=== PATIENT | male | born 1990 | race Caucasian/White ===

== ENCOUNTER 2018-03-31 14:03 | Emergency (ER) | payer SELFPAY ==
--- NOTE | 2018-03-31 15:53 | ED ---
HPI Febrile Illness - HPI Summary HPI Summary: Patient is a 27 M y/o w/ c/o pressure in left chest, coughing, congestion, and cold onsetting a week ago. Cough is noted to be somewhat productive. He reports that when he has a coughing fit, he experiences cold sweats. He denies sore throat but reports some rhinorrhea. Patient is a smoker but has stopped in the past few days due to Sx. He denies any other medical issues. 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 Patient does not report anything that alleviates Sx. On triage, pain is rated 6/10. Home medications and allergies reviewed. - History of Current Complaint Chief Complaint: EDUpperRespComplaint Time Seen by Provider: 03/31/18 15:33 Hx Obtained From: Patient Onset/Duration: Started Weeks Ago - one week ago, Still Present Timing: Constant Current Severity: Moderate - 6/10 Pain Intensity: 6 Pain Scale Used: 0-10 Numeric - 6/10 on triage Aggravating Factors: Other: - physical work at patient's job Alleviating Factors: Nothing Associated Signs and Symptoms: Other: - POSITIVE: rhinorrhea, left chest pressure, productive coughing, congestion, cold, cold sweats during coughing fits, NEGATIVE: sore throat - Allergy/Home Medications Allergies/Adverse Reactions: Allergies Allergy/AdvReac Type Severity Reaction Status Date / Time No Known Allergies Allergy Verified 03/31/18 14:14 PMH/Surg Hx/FS Hx/Imm Hx Sensory History: Denies: Hx Legally Blind, Hx Deafness Opthamlomology History: Denies: Hx Legally Blind EENT History: Denies: Hx Deafness Infectious Disease History: No Infectious Disease History: Denies: Traveled Outside the [place] in Last 30 Days - Family History Known Family History: Negative: Blood Disorder - Social History Alcohol Use: None Substance Use Type: Reports: None Hx Tobacco Use: Yes Smoking Status (MU): Current Every Day Smoker Review of Systems Positive: Other - POSITIVE: cold, cold sweats when experiencing coughing fits . Negative: Fever - on vitals, temp is 98.2 F Positive: Nasal Discharge. Negative: Sore Throat Positive: Other - left chest pressure Positive: Cough - productive , Other - congestion All Other Systems Reviewed And Are Negative: Yes Physical Exam - Summary Physical Exam Summary: Appearance: Well appearing, no pain distress Skin: warm, dry, reflects adequate perfusion Head/face: normal Eyes: EOMI, LANE ENT: normal Neck: supple, non-tender Respiratory: breath sounds present; wheezes in the left lung, no rales nor crackles Cardiovascular: RRR, pulses symmetrical Abdomen: non-tender, soft Bowel Sounds: present Musculoskeletal: normal, strength/ROM intact Neuro: normal, sensory motor intact, A&Ox3 Triage Information Reviewed: Yes Vital Signs On Initial Exam: Initial Vitals Temp Pulse Resp BP Pulse Ox 98.2 F 71 14 117/71 98 03/31/18 14:13 03/31/18 14:13 03/31/18 14:13 03/31/18 14:13 03/31/18 14:13 Vital Signs Reviewed: Yes Diagnostics - Vital Signs Vital Signs Temp Pulse Resp BP Pulse Ox 03/31/18 14:13 98.2 F 71 14 117/71 98 - Laboratory Lab Statement: Any lab studies that have been ordered have been reviewed, and results considered in the medical decision making process. Course/Dx - Course Course Of Treatment: Smoker presents with cough and cold symptoms and mild wheezing and was left chest. No rales or rhonchi and no fever. Treated symptomatically for bronchitis with steroids, albuterol, decongestant. Follow- up with primary care physician. - Febrile Illness Differential Diagnoses: Other: - URI versus bronchitis versus pneumonia - Diagnoses Provider Diagnoses: Acute bronchitis Discharge - Sign-Out/Discharge Documenting (check all that apply): Patient Departure - discharge - Discharge Plan Condition: Stable Disposition: HOME Prescriptions: Albuterol HFA INHALER* [Ventolin HFA Inhaler*] 2 puff INH Q4H PRN #1 mdi PRN Reason: Sob/Wheezing Guaifenesin/Pseudoephedrne HCl [Mucinex D ER 600-60 mg Tablet] 1 each PO BID PRN #10 tab.er.12h PRN Reason: Congestion predniSONE TAB* [Deltasone TAB*] 50 mg PO DAILY #5 tab Patient Education Materials: Acute Bronchitis (ED) Forms: *Work Release Referrals: Gloria Bahena [Primary Care Provider] - Additional Instructions: Cut back on smoking. Stay well-hydrated. Return with fever, pain in the chest , shortness of breath, worse or other concerns. Follow up with your family doctor on Monday. - Billing Disposition and Condition Condition: STABLE Disposition: Home - Attestation Statements Document Initiated by Meghanibe: Yes Documenting Scribe: Esau Kelley Provider For Whom Rustam is Documenting (Include Credential): Omer Moreira MD Scribe Attestation: IEsau, scribed for Omer Moreira MD on 03/31/18 at 1712. Scribe Documentation Reviewed: Yes Provider Attestation: The documentation as recorded by the Esau gregg accurately reflects the service I personally performed and the decisions made by me, Omer Moreira MD
[2018-03-31 16:27] VITALS: BP 120/76
== END 2018-03-31 16:26 | disposition home or self-care (01) ==
LOC: ED 14:03

== ENCOUNTER 2019-01-30 06:43 | Emergency (ER) | payer MEDICAID ==
[2019-01-30] MEDS ORDERED: NS 0.9% 1000 ML** 2,000 ML IV ONE (07:14)
--- NOTE | 2019-01-30 07:17 | ED ---
Substance Abuse/Use - HPI Summary HPI Summary: This patient is a 28 year old M presenting to [facility] with a chief complaint of overdose after using drugs for approx. 6 hours. Pt used meth felt unwell and then decided to use heroin. Pt reports after using heroin he started to get dizzy, his diaphragm cramped up, irregular heartbeat, and diaphoresis. It was pt s first time using heroin. Pt seems to have been using meth for a while, especially when stressed. Pt reports his girlfriend recently broke up with him. - History Of Current Complaint Chief Complaint: EDSubstanceAbuse Stated Complaint: SUBSTANCE ABUSE PER EMS Time Seen by Provider: 01/30/19 07:05 Hx Obtained From: Patient Onset/Duration of Drug/ETOH Abuse: Hours Ingestion History: Type/Name Of Drug - heroin, meth Timing Of Abuse: Binge Use Aggravating Factor(s): Recent Stress Alleviating Factor(s): Nothing Associated Signs And Symptoms: Palpitations, Shortness Of Breath, Diaphoretic, Other: - dizzy Related Hx: Recent Stressors - Allergies/Home Medications Allergies/Adverse Reactions: Allergies Allergy/AdvReac Type Severity Reaction Status Date / Time No Known Allergies Allergy Verified 01/30/19 06:54 Home Medications: Home Medications NK [No Home Medications Reported] 01/30/19 [History Confirmed 01/30/19] PMH/Surg Hx/FS Hx/Imm Hx Sensory History: Denies: Hx Legally Blind, Hx Deafness Opthamlomology History: Denies: Hx Legally Blind Infectious Disease History: No Infectious Disease History: Denies: Traveled Outside the [place] in Last 30 Days - Family History Known Family History: Negative: Blood Disorder - Social History Occupation: Employed Full-time Alcohol Use: None Substance Use Type: Reports: None Hx Tobacco Use: Yes Smoking Status (MU): Current Every Day Smoker Review of Systems Positive: Skin Diaphoresis Positive: Palpitations Positive: Shortness Of Breath Neurological: Other - dizzy All Other Systems Reviewed And Are Negative: Yes Physical Exam - Summary Physical Exam Summary: Appearance: Well-appearing, Well-nourished, lying in bed comfortably Skin: Warm, dry, no obvious rash Eyes: sclera anicteric, no conjunctival pallor ENT: mucous membranes moist, pharynx appears normal Neck: Supple, nontender Respiratory: Clear to auscultation, no signs of respiratory distress Cardiovascular: Normal S1, S2. No murmurs. Normal distal pulses in tibial and radial bilaterally. Bradycardic. Abdomen: Soft, nontender, normal active bowel sounds present Musculoskeletal: Normal, Strength/ROM Intact Neurological: A&Ox3, awake and alert, mentation is normal, speech is fluent and appropriate Psychiatric: affect is normal, does not appear anxious or depressed Triage Information Reviewed: Yes Vital Signs On Initial Exam: Initial Vitals Temp Pulse Resp BP Pulse Ox 96.3 F 48 16 133/80 98 01/30/19 06:49 01/30/19 06:49 01/30/19 06:49 01/30/19 06:49 01/30/19 06:49 Vital Signs Reviewed: Yes Diagnostics - Vital Signs Vital Signs Temp Pulse Resp BP Pulse Ox 01/30/19 06:49 96.3 F 48 16 133/80 98 - Laboratory Result Diagrams: 01/30/19 07:40 01/30/19 07:40 Lab Statement: Any lab studies that have been ordered have been reviewed, and results considered in the medical decision making process. - EKG 0657 Cardiac Rate: Bradycardia EKG Rhythm: Sinus Bradycardia Summary of EKG Findings: An EKG reveals sinus bradycardia at 44 BPM, P waves, QRS complex, and T waves are within normal limits, T waves and intervals are normal, no ischemic changes. Course/Dx - Course Course Of Treatment: This patient is a 28 year old M presenting to [facility] with a chief complaint of overdose after using drugs for approx. 6 hours. Pt used meth felt unwell and then decided to use heroin. Pt reports after using heroin he started to get dizzy, his diaphragm cramped up, irregular heartbeat, and diaphoresis. It was pts first time using heroin. Pt seems to have been using meth for a while. Physical Exam Findings are nml except his heart rate is bradycardic. Blood work obtained. Glucose is 142, Total Bilirubin is 1.6, and AST is 10. Serum Alcohol at 0740 is < 10. An EKG reveals sinus bradycardia at 44 BPM, P waves, QRS complex, and T waves are within normal limits, T waves and intervals are normal, no ischemic changes.. Patient will be discharged with follow up from PCP [facility]. The patient is agreeable with this plan. - Diagnoses Provider Diagnoses: Polysubstance abuse Discharge - Sign-Out/Discharge Documenting (check all that apply): Patient Departure - Discharge Patient Received Moderate/Deep Sedation with Procedure: No - Discharge Plan Condition: Good Disposition: HOME Patient Education Materials: Narcotic Safety (ED), Polysubstance Abuse (ED) Referrals: [facility] [Outside] Gloria Bahena [Primary Care Provider] - - Attestation Statements Document Initiated by Scribe: Yes Documenting Scribe: Marlena Moore Provider For Whom Scribe is Documenting (Include Credential): Dr. Tyshawn Singh MD Scribe Attestation: Marlena Smith scribed for Dr. Tyshawn Singh MD on 01/30/19 at 1014. Status of Scribe Document: Ready
[2019-01-30 07:53] LABS: ABS Basophils 0.1 10^3/ul (0-0.2); ABS Eosinophils 0.1 10^3/ul (0-0.6); ABS Lymphocytes 1.2 10^3/ul (1.0-4.8); ABS Monocytes 0.8 10^3/ul (0-0.8); ABS Neutrophils 8.2 10^3/ul (1.5-7.7); Eosinophil % 0.7 %; Hematocrit 41 % (42-52); Hemoglobin 14.2 g/dL (14.0-18.0); Lymphocyte % 11.5 %; Mean Corpuscular HGB Conc 35 g/dL (31-36); Mean Corpuscular Hemoglobin 32 pg (27-31); Mean Corpuscular Volume 93 fL (80-94); Mean Platelet Volume 9.6 fL (7.4-10.4); Nucleated Red Blood Cells % 0.1; Platelet Count 174 10^3/uL (150-450); Red Blood Count 4.39 10^6 /uL (4.18-5.48); Red Cell Distribution Width 13 % (10-15); White Blood Count 10.3 10^3/uL (3.5-10.8)
[2019-01-30 08:10] LABS: ALT 17 U/L (7-52); AST 10 U/L (13-39); Albumin 4.5 g/dL (3.2-5.2); Alkaline Phosphatase 40 U/L (34-104); Anion Gap 8 mmol/L (2-11); BUN/Creatinine Ratio 18.7 (8-20); Blood Urea Nitrogen 17 mg/dL (6-24); CO2 Carbon Dioxide 25 mmol/L (22-32); Calcium 9.2 mg/dL (8.6-10.3); Chloride 105 mmol/L (101-111); EGFR Non-African American 99.2 (>60); Globulin 2.3 g/dL (2-4); Glucose 143 mg/dL (70-100); Potassium 3.6 mmol/L (3.5-5.0); Sodium 138 mmol/L (135-145); Total Protein 6.8 g/dL (6.4-8.9)
[2019-01-30 08:40] LABS: Alcohol < 10 mg/dL (<10)
[2019-01-30 09:32] VITALS: BP 121/67
== END 2019-01-30 09:31 | disposition home or self-care (01) ==
LOC: ED 06:43
DX: F19.10 Other psychoactive substance abuse, uncomplicated (principal); F17.210 Nicotine dependence, cigarettes, uncomplicated
CPT/HCPCS: 36415; 80053; 80320; 83605; 85025; 93005; 96360; 96361; 99283; G0480

== ENCOUNTER 2019-02-25 16:16 | Emergency (ER) | payer MEDICAID, OTHER ==
[2019-02-25] MEDS ORDERED: Lidocaine 1% MPF ** 5 ML VIAL IM ONE (16:39)
[2019-02-25] MEDS ORDERED: cefTRIAXone VIAL(*) 250 MG VIAL IM ONE (16:39)
[2019-02-25] MEDS ORDERED: Azithromycin TAB* 250 MG PO ONE (16:40)
--- NOTE | 2019-02-25 16:41 | ED ---
GI/ HPI - HPI Summary HPI Summary: Patient complains of hard painful lump in right inguinal crease is 4 days. Pain worse with palpation and movement. Pain is constant. Denies fever, cough , sore throat, CP, SOB, N/V/V abdominal pain, change in urine, change in BM, penile or testicular symptoms. Medical history is none. - History of Current Complaint Chief Complaint: EDAbdPain Time Seen by Provider: 02/25/19 16:27 Stated Complaint: LUMP IN GROIN PER PT Hx Obtained From: Patient Onset/Duration: Started Days Ago Timing: Constant Severity: Moderate Current Severity: Moderate Pain Intensity: 5 Location of Pain: Other Pain Characteristics: Aching Associated Signs and Symptoms: Positive: Negative - Allergy/Home Medications Allergies/Adverse Reactions: Allergies Allergy/AdvReac Type Severity Reaction Status Date / Time No Known Allergies Allergy Verified 01/30/19 06:54 PMH/Surg Hx/FS Hx/Imm Hx Endocrine/Hematology History: Denies: Hx Anticoagulant Therapy Cardiovascular History: Denies: Hx Pacemaker/ICD History: Denies: Hx Dialysis Sensory History: Denies: Hx Legally Blind, Hx Deafness Opthamlomology History: Denies: Hx Legally Blind EENT History: Denies: Hx Deafness Neurological History: Denies: Hx CVA Infectious Disease History: No Infectious Disease History: Denies: Traveled Outside the [place] in Last 30 Days - Family History Known Family History: Negative: Blood Disorder - Social History Alcohol Use: None Substance Use Type: Reports: None Substance Use Comment - Amount & Last Used: meth Hx Tobacco Use: Yes Smoking Status (MU): Current Every Day Smoker Review of Systems Constitutional: Negative Eyes: Negative ENT: Negative Cardiovascular: Negative Respiratory: Negative Gastrointestinal: Negative Genitourinary: Negative Musculoskeletal: Negative Skin: Negative Neurological: Negative Psychological: Normal All Other Systems Reviewed And Are Negative: Yes Physical Exam - Summary Physical Exam Summary: Hard painful nodule at top of right inguinal crease consistent with lymphadenopathy. Exam of genitalia normal. Triage Information Reviewed: Yes Vital Signs On Initial Exam: Initial Vitals Temp Pulse Resp BP Pulse Ox 98.7 F 66 18 123/66 100 02/25/19 16:21 02/25/19 16:21 02/25/19 16:21 02/25/19 16:21 02/25/19 16:21 Vital Signs Reviewed: Yes Appearance: Positive: Well-Appearing Skin: Positive: Warm Head/Face: Positive: Normal Head/Face Inspection Eyes: Positive: Normal Neck: Positive: Supple Respiratory/Lung Sounds: Positive: Clear to Auscultation Cardiovascular: Positive: Normal Abdomen Description: Positive: Nontender Male Genital Exam: Positive: Normal Genitalia, Inguinal Tenderness Musculoskeletal: Positive: Normal Neurological: Positive: Normal Psychiatric: Positive: Normal AVPU Assessment: Alert - Rafi Coma Scale Best Eye Response: 4 - Spontaneous Best Motor Response: 6 - Obeys Commands Best Verbal Response: 5 - Oriented Coma Scale Total: 15 Diagnostics - Vital Signs Vital Signs Temp Pulse Resp BP Pulse Ox 02/25/19 16:21 98.7 F 66 18 123/66 100 - Laboratory Lab Statement: Any lab studies that have been ordered have been reviewed, and results considered in the medical decision making process. GIGU Course/Dx - Course Course Of Treatment: Patient complains of hard painful lump in right inguinal crease is 4 days. Pain worse with palpation and movement. Pain is constant. Denies fever, cough, sore throat, CP, SOB, N/V/V abdominal pain, change in urine , change in BM, penile or testicular symptoms. Medical history is none. Vital signs within normal limits. Cultures for gonorrhea and chlamydia pending. Patient given Rocephin 250 mg IM, and azithromycin 1000 mg here in the ED. - Diagnoses Provider Diagnoses: Inguinal lymphadenopathy Discharge - Sign-Out/Discharge Documenting (check all that apply): Patient Departure Patient Received Moderate/Deep Sedation with Procedure: No - Discharge Plan Condition: Stable Disposition: HOME Prescriptions: Oxycodone HCl 5 mg PO TID 2 Days #4 tablet MDD 3 tabs Patient Education Materials: Lymphadenopathy (ED) Referrals: Gloria Bahena [Nurse Practitioner] - August Uribe MD [Medical Doctor] - Additional Instructions: Alternate ibuprofen 600 mg with Tylenol 650 mg every 3 hours for pain for the next 3 days. Take oxycodone at night if needed for pain. Follow-up with urology Dr. Uribe if lymph node remains swollen more than 1 week. - Billing Disposition and Condition Condition: STABLE Disposition: Home - Attestation Statements Provider Attestation: I was available for consultation for this patient. I did not evaluate the patient or participate in any medical decision making or disposition decisions unless I am specifically named in the chart as having consulted on the patient. If I have consulted on the patient, please see my own ED note on the patient encounter. Birdie Saldaña MD
[2019-02-25 18:00] LABS: Urine Appearance Clear; Urine Bilirubin Negative (Negative); Urine Blood Negative (Negative); Urine Color Yellow; Urine Glucose Negative (Negative); Urine Ketones Trace (Negative); Urine Nitrite Negative (Negative); Urine Protein Negative (Negative); Urine Specific Gravity 1.021 (1.010-1.030); Urine Urobilinogen Negative (Negative)
[2019-02-25 18:26] VITALS: BP 122/66
[2019-02-26 22:56] LABS: Chlamydia trachomatis NAA Negative (Negative); Neisseria gonorrhoeae (GC) NAA Negative (Negative)
== END 2019-02-25 18:32 | disposition home or self-care (01) ==
LOC: ED 16:16
DX: R59.0 Localized enlarged lymph nodes (principal); R19.09 Other intra-abdominal and pelvic swelling, mass and lump
CPT/HCPCS: 81003; 87491; 87591; 96372; 99282; A9270-GY; J0696